=== PATIENT | male | born 1950 | race Caucasian/White ===

== ENCOUNTER 2018-03-23 06:22 | Day surgery (SDC) | payer BC ==
[2018-03-23] MEDS: SOD CHLORIDE 0.9% 1,000 ML IV (06:00)
[~2018-03-23 06:22] MED LIST: CEFAZOLIN 2 GM/50 ML (PMX) 50 ML IVPB
[2018-03-23] MEDS ORDERED: ROPIVACAINE 0.5 % 30 ML VIAL ×2 (07:00→07:57)
[2018-03-23] MEDS ORDERED: METOCLOPRAMIDE 10 MG INJ (07:00)
[2018-03-23] MEDS ORDERED: ONDANSETRON 4 MG INJ (07:00)
[2018-03-23] MEDS ORDERED: DEXAMETHASONE 4 MG/ML 1 ML INJ (07:00)
[2018-03-23] MEDS ORDERED: FENTAnyl 50 MCG/ML VIAL (07:49)
[2018-03-23] MEDS ORDERED: MIDAZOLAM 1 MG/ML 2 ML INJ (07:50)
[2018-03-23] MEDS ORDERED: PROPOFOL 20 ML (07:54)
[2018-03-23] MEDS ORDERED: LIDOCAINE 100 MG SYRINGE (07:56)
[2018-03-23] MEDS ORDERED: LABETALOL HCL 20MG INJ (08:34)
[2018-03-23] MEDS ORDERED: hydrALAzine 20 MG INJ IV (09:00)
[2018-03-23] MEDS ORDERED: LABETALOL HCL 20MG INJ IV (09:00)
[2018-03-23] MEDS ORDERED: HYDROmorphONE 1 MG/5 ML IV SYRINGE IV ×2 (09:00)
[2018-03-23] MEDS ORDERED: IPRATROPIUM (NEB) 0.5 MG/2.5 ML AMP HHN (09:00)
[2018-03-23] MEDS ORDERED: MEPERIDINE 25 MG INJ IV (09:00)
[2018-03-23] MEDS ORDERED: LEVALBUTEROL (NEB) 1.25 MG/0.5 ML AMP HHN (09:00)
[2018-03-23] MEDS ORDERED: KETOROLAC 30 MG INJ IV (09:00)
[2018-03-23] MEDS ORDERED: DIPHENHYDRAMINE 50 MG INJ IV (09:00)
[2018-03-23] MEDS ORDERED: FENTAnyl 50 MCG/ML VIAL IV ×2 (09:00)
[2018-03-23] MEDS ORDERED: ONDANSETRON 4 MG INJ IV (09:00)
[2018-03-23] MEDS: POLYMYXIN/BACITRACIN 1L IRRIG (09:50)
[2018-03-23] MEDS: BUPIVACAINE 0.25% (MPF) 30 ML INJ (10:00)
[2018-03-23] MEDS: HYDROmorphONE 1 MG/5 ML IV SYRINGE IV (10:38)
[2018-03-23] MEDS: HYDROCODONE/APAP (5/325) TAB PO (10:39)
== END 2018-03-23 11:39 | disposition home or self-care (01) ==
LOC: SDS 06:22
DX: K40.30 Unilateral inguinal hernia, with obstruction, without gangrene, not specified as recurrent (principal)
CPT/HCPCS: 49507